=== PATIENT | female | born 1935 | race Caucasian/White ===

== ENCOUNTER → 2019-05-20 | Outpatient (CLI) | payer MEDICARE, BC ==
--- NOTE | 2019-05-20 16:23 | RAD ---
Chest CT without contrast Clinical indications: Persistent cough TECHNIQUE: Noncontrast helical CT scanning of the chest was performed. Without contrast, the sensitivity to detect organ pathology is decreased. PQRS compliance Statement One or more of the following individualized dose reduction techniques were utilized for this study: 1. Automated exposure control 2. Adjustment of the mA and/or kV according to patient size 3. Use of iterative reconstruction technique COMPARISON: None available. FINDINGS: No enlarged thoracic lymphadenopathy is evident. No focal aneurysmal dilatation of the thoracic aorta is seen. Calcified atheromatous disease of the coronary arteries is seen. The heart size is normal. No pericardial effusion is seen. Calcified granuloma of the posterior left costophrenic angle is seen. On series 3 image 22, there is a small noncalcified lung nodule within the lateral aspect of the superior segment of the left lower lobe. It measures 3 mm. On series 3 and image 32, there is a small right lateral lung base noncalcified lung nodule measuring 5 mm in size. On image 38, there is a small 3 mm noncalcified lung nodule within the medial segment of the right middle lobe. Mild bilateral peripheral subpleural interstitial lung infiltrates with a lower lung zone predominance are seen. This may represent mild pulmonary fibrosis. No lung consolidation or lung mass or pleural effusion or pneumothorax is seen. The proximal bronchial tree is patent. On series 2 and images 49 and 51, there are small hypodense nodules of the liver which are too small to accurately characterize. No adrenal mass is evident. Bone island of the midthoracic spine is seen. No lytic process is evident. No adrenal mass is evident. Upper pole right renal cyst is seen. IMPRESSION: Mild bilateral peripheral subpleural interstitial lung infiltrates with a lower lung zone predominance left may represent mild pulmonary fibrosis. No consolidative pneumonia or lung mass is seen otherwise. Small bilateral lung nodules measuring 5 mm or less in size. If there is a high risk for malignancy, then recommend a follow-up chest CT in 12 months as per Fleischner guidelines. Indeterminate small nodules of the right lobe of the liver. Recommend multiphasic abdomen CT with IV contrast for further evaluation. Electronically signed by: Washington Zepeda MD (05/20/2019 4:20 PM) [facility]
== END | disposition home or self-care (01) ==
LOC: CT 10:51
PROVIDERS: ATTEND Internal Medicine Critical Care Medicine
DX: J84.10 Pulmonary fibrosis, unspecified (principal); R91.8 Other nonspecific abnormal finding of lung field; I25.10 Atherosclerotic heart disease of native coronary artery without angina pectoris; N28.1 Cyst of kidney, acquired
CPT/HCPCS: 71250

== ENCOUNTER → 2019-05-25 | Outpatient (CLI) | payer MEDICARE, BC ==
--- NOTE | 2019-05-25 16:33 | CARD ---
MR#: [id number] Date of Study: 05/25/2019 Ordering Physician: GUILLERMO DOW, Referring Physician: GUILLERMO DOW, Tech: Shanti Fritz APPROVED REPORT EXAM: Two-dimensional and M-mode echocardiogram with Doppler and color Doppler. Other Information Quality : AverageHR: 75bpm INDICATION Dyspnea 2D DIMENSIONS RVDd3.5 (2.9-3.5cm)Left Atrium(2D)3.7 (1.6-4.0cm) IVSd0.8 (0.7-1.1cm)Aortic Root(2D)2.6 (2.0-3.7cm) LVDd5.1 (3.9-5.9cm)LVOT Diameter2.0 (1.8-2.4cm) PWd1.0 (0.7-1.1cm)LVDs2.7 (2.5-4.0cm) FS (%) 47.3 %SV96.3 ml LVEF(%)78.4 (>50%) Aortic Valve AoV Peak Ameya.273.3cm/sAoV VTI53.2cm AO Peak GR.29.9mmHgLVOT Peak Ameya.92.7cm/s LVOT VTI 22.16cmAO Mean GR.16mmHg JIGNA (VMAX)0.83no7ORH (VTI)1.32cm2 Mitral Valve MV E Sihgfifx03.8cm/sMV DECEL LBYD187zn MV A Ifwueere47.2cm/sMV E Mean Gr.3mmHg MV WHR88kjQ/A Ratio0.6 MVA (PHT)4.44cm2 TDI E/Lateral E'5.5E/Medial E'6.7 Pulmonary Valve PV Peak Rklfkogw43.0cm/sPV Peak Grad.3mmHg Tricuspid Valve TR P. Qpcsjdqw414ar/sRAP BSGJTIJV4wvFu TR Peak Gr.46fzOoYEXQ65bwKw Pulmonary Vein S1 Yjhyrxwp70.1cm/sD2 Odlijqsl61.7cm/s LEFT VENTRICLE The left ventricle is normal size. There is normal left ventricular wall thickness. The left ventricu lar systolic function is normal and the ejection fraction is within normal range. The Ejection Fracti on is 55%. There is normal LV segmental wall motion. Transmitral Doppler flow pattern is Grade I-abno rmal relaxation pattern. RIGHT VENTRICLE The right ventricle is moderately dilated. There is normal right ventricular wall thickness. The righ t ventricular systolic function is normal. ATRIA The left atrium size is normal. The right atrium is borderline dilated. The interatrial septum is int act with no evidence for an atrial septal defect or patent foramen ovale as noted on 2-D or Doppler i maging. AORTIC VALVE Aortic valve is not well visualized. Cannot rule out prior TAVR. Doppler and Color Flow revealed no s ignificant aortic regurgitation. Calculated aortic valve area is 1.32 cm2 with maximum pressure gradi ent of 32 mmHg and mean pressure gradient of 17 mmHg. MITRAL VALVE The mitral valve is thickened but opens well. There is no evidence of mitral valve prolapse. There is no mitral valve stenosis. Doppler and Color-flow revealed trace mitral regurgitation. TRICUSPID VALVE The tricuspid valve is normal in structure and function. Doppler and Color Flow revealed trace to mil d tricuspid regurgitation with an estimated PAP of 37 mmHg. There is no tricuspid valve stenosis. PULMONIC VALVE The pulmonic valve is not well visualized. Doppler and Color Flow revealed trace pulmonic valvular re gurgitation. There is no pulmonic valvular stenosis. GREAT VESSELS The aortic root is normal in size. The IVC was not visualized. PERICARDIAL EFFUSION There is no evidence of significant pericardial effusion. Critical Notification Critical Value: No <Conclusion> The left ventricular systolic function is normal and the ejection fraction is within normal range. Th e Ejection Fraction is 55%. There is normal LV segmental wall motion. The right ventricle is moderately dilated. Aortic valve is not well visualized. Cannot rule out prior TAVR. Signed by : Jourdan Monroy, Electronically Approved : 05/25/2019 16:33:12
== END | disposition home or self-care (01) ==
LOC: ECHO 10:22
PROVIDERS: ATTEND Internal Medicine Critical Care Medicine
DX: I07.1 Rheumatic tricuspid insufficiency (principal)
CPT/HCPCS: 93306

== ENCOUNTER → 2019-12-22 | Outpatient (CLI) | payer MEDICARE, BC ==
[2019-12-22 09:41] LABS: CREATININE 1.5 mg/dL (0.6-1.0); GFR 32.9
== END | disposition home or self-care (01) ==
LOC: CT 09:17
PROVIDERS: ATTEND Internal Medicine Critical Care Medicine
DX: K76.89 Other specified diseases of liver (principal)
CPT/HCPCS: 36415; 82565; 84520

== ENCOUNTER 2019-12-24 07:05 | Outpatient (CLI) | payer MEDICARE, BC ==
[~2019-12-24] VITALS: Ht 157.5 cm; Wt 68.0 kg
[2019-12-24] MEDS ORDERED: SODIUM BICARBONATE VIAL 150 MEQ in IV STERILE WATER 1,000 ML IV ONE (07:30)
[2019-12-24 07:55] VITALS: BP 129/51
[2019-12-24] MEDS ORDERED: IOHEXOL 300 MG/ML 100ML VIAL. IV ONE (08:45)
[2019-12-24 13:10] VITALS: BP 153/41
--- NOTE | 2019-12-24 13:15 | NUR ---
Pt discharged home. VSS. Pt denies any pain or sob. Pt walked to ER exit.
--- NOTE | 2019-12-24 14:29 | RAD ---
EXAM: CT Abdomen and Pelvis with and without IV contrast INDICATION: Reason: LIVER NODULE / Spl. Instructions: omni 300 65ml HYDRATION PROTOCOL / History: TECHNIQUE: Multi-detector row CT images were acquired from the lung bases through the abdomen and pelvis with and without the use of IV contrast. Precontrast, arterial phase and portal venous phases were acquired. Sagittal and coronal images were acquired from the transaxial data. All CT scans performed at this facility utilize dose optimization techniques as appropriate to the exam, including the following: Automated exposure control and adjustment of the mA and/or KV according to patient size (this includes techniques or standardized protocols for targeted exams where dose is indication/reason for exam). IV CONTRAST: Administered ORAL CONTRAST: Not administered COMPARISON: Chest CT without IV contrast 05/20/2019 FINDINGS: LOWER CHEST: Sternotomy and aortic valve replacement, partially imaged. Similar-appearing lower lobe interstitial opacities as described on prior chest CT. No change in the 3 mm medial right middle lobe lung nodule previously described (image 7 of 81 this exam on series 3). LIVER: Stable 3 mm hypodense lesion, statistically likely to be a cyst, in the periphery of the right lobe (image 42 of series 9 this exam). The other nodule identified on prior CT is not as well seen on this examination and may have been an area of focal fatty infiltration since resolved. BILIARY SYSTEM: Gallbladder is surgically absent. Bile ducts are not dilated. PANCREAS: Unremarkable SPLEEN: Unremarkable ADRENALS: Unremarkable KIDNEYS & URETERS: Superior pole right renal 2.5 cm cyst is not significantly changed and shows no enhancement. This requires no additional imaging follow-up. Inferior pole left renal 1.8 cm cyst shows no enhancement measuring approximately 15 Hounsfield units. This requires no additional imaging follow-up. BLADDER: Unremarkable REPRODUCTIVE ORGANS: Unremarkable GASTROINTESTINAL: Scattered colonic diverticulosis. Otherwise the stomach, small bowel, and colon are unremarkable. The appendix is not included in the hdtec-ho-nace. MESENTERY/PERITONEUM/RETROPERITONEUM: Unremarkable VASCULAR: Focal ectasia of the infrarenal abdominal aorta to 1.9 cm AP is present along with scattered arterial calcifications. No evidence of flow limiting stenosis. LYMPH NODES: No adenopathy OSSEOUS & SOFT TISSUES: Unremarkable IMPRESSION: The nodules in the liver recommended for follow-up are likely benign cysts and fatty infiltration. They require no additional imaging follow-up. Electronically signed by: Magdiel Cruz MD (12/24/2019 2:26 PM) [id number]
== END 2019-12-24 13:26 | disposition home or self-care (01) ==
LOC: CT 07:05
PROVIDERS: ATTEND Internal Medicine Critical Care Medicine
DX: K57.30 Diverticulosis of large intestine without perforation or abscess without bleeding (principal); K76.89 Other specified diseases of liver; N28.1 Cyst of kidney, acquired; R91.1 Solitary pulmonary nodule; Z88.0 Allergy status to penicillin; Z95.4 Presence of other heart-valve replacement; Z95.1 Presence of aortocoronary bypass graft; Z90.49 Acquired absence of other specified parts of digestive tract
CPT/HCPCS: 74170; J3490; Q9967

== ENCOUNTER → 2020-01-11 | Outpatient (CLI) | payer MEDICARE, BC ==
[2019-12-24 13:10] VITALS: BP 153/41
--- NOTE | 2020-01-11 13:50 | RAD ---
Left lower extremity venous insufficiency ultrasound study without comparison for left leg pain. Left leg reflux. TECHNIQUE AND FINDINGS: Real-time grayscale and color and spectral Doppler evaluation of the superficial veins of the left lower extremity is performed. The greater saphenous vein has a diameter of 4.2 mm proximally, with augmentable flow. At the saphenofemoral junction, there is mild reflux of 0.7 seconds. The short saphenous vein has a diameter of 2.8 mm, and demonstrates no significant reflux. IMPRESSION: 1. Mild venous insufficiency involving the left saphenous vein at the saphenofemoral junction. Electronically signed by: Jesús Reyes MD (01/11/2020 1:47 PM) [id number]
--- NOTE | 2020-01-11 15:56 | RAD ---
Ankle-brachial indices 01/11/2020 INDICATION: Left leg pain COMPARISON STUDY: None Discussion: Right brachial pressure: 106 mmHg Left brachial pressure: 107 mmHg Right ankle pressure: 1 39 mmHg Left ankle pressure: 1 40 mmHg Right ankle brachial index: 1.29 Left ankle-brachial index 1.30 IMPRESSION: Ankle-brachial indices within normal limits Electronically signed by: Rajat Dsouza MD (01/11/2020 3:53 PM) [id number]
== END | disposition home or self-care (01) ==
LOC: US 12:09
PROVIDERS: ATTEND Family Medicine
DX: I87.2 Venous insufficiency (chronic) (peripheral) (principal); M79.604 Pain in right leg; M79.605 Pain in left leg
CPT/HCPCS: 93922; 93971

== ENCOUNTER → 2020-06-08 | Outpatient (CLI) | payer MEDICARE, BC ==
--- NOTE | 2020-06-08 12:40 | RAD ---
EXAM: CT Chest without IV contrast INDICATION: Reason: PULMONARY FIBROSIS / Spl. Instructions: / History: TECHNIQUE: Multi-detector row CT images were acquired from the thoracic inlet through the upper abdo men without the use of IV contrast. Supine and prone imaging was performed with inspiration and expir ation. Sagittal and coronal images were acquired from the transaxial data. All CT scans performed at this facility utilize dose optimization techniques as appropriate to the exam, including the followin g: Automated exposure control and adjustment of the mA and/or KV according to patient size (this incl udes techniques or standardized protocols for targeted exams where dose is indication/reason for exam ). COMPARISON: None FINDINGS: The absence of IV contrast limits evaluation of soft tissue pathology. CARDIOVASCULAR: Dense multivessel coronary calcifications. Postsurgical changes from previous aortic valve replacement are present. MEDIASTINUM & LIZ: No adenopathy or masses. LUNGS: Subpleural reticular densities are present diffusely in both the upper and lower lobes. There is no honeycombing although early subchondral cystic change is present in the bilateral posterior cos tophrenic angles. No significant bronchiectasis. No air trapping. No lung nodules or masses are ident ified. There is respiratory motion artifact. The previously noted 3 mm right middle lobe lung nodule is not as well seen on this examination. PLEURAL SPACE: No pleural effusions or pneumothorax. OSSEOUS & SOFT TISSUE: Unremarkable ABDOMEN: The visualized portions of the upper abdomen are unremarkable. IMPRESSION: Mild subpleural reticular densities present in the upper and lower lobe generalized distribution with no evidence of honeycombing. These are findings consistent with early interstitial lung disease, fav or nonspecific interstitial pneumonitis. Electronically signed by: Magdiel Cruz MD (06/08/2020 12:37 PM) [id number]
== END ==
LOC: CT 09:51
PROVIDERS: ATTEND Internal Medicine Critical Care Medicine
DX: J84.10 Pulmonary fibrosis, unspecified (principal)
CPT/HCPCS: 71250